=== PATIENT | male | born 1950 | race Caucasian/White ===

== ENCOUNTER 2024-03-09 07:57 | Outpatient (CLI) | payer MEDICARE | END 2024-03-09 07:58 | disposition home or self-care (01) | LOC: CSHCT 07:57 | PROVIDERS: ATTEND Internal Medicine | DX: R10.30 Lower abdominal pain, unspecified (principal); N50.89 Other specified disorders of the male genital organs; K40.90 Unilateral inguinal hernia, without obstruction or gangrene, not specified as recurrent; N50.3 Cyst of epididymis | CPT/HCPCS: 74177; 76870; 82565; 93976 ==